=== PATIENT | male | born 1950 | race Caucasian/White ===

== ENCOUNTER → 2016-11-13 | Day surgery (SDC) | payer OTHER, MEDICARE ==
[2016-11-08 14:01] VITALS: BMI 29.1
[2016-11-13 10:24] VITALS: TEMP 98.6
[2016-11-13 10:41] VITALS: BP 124/77; PULSE 70
--- NOTE | 2016-11-14 12:04 | PATH ---
Surgical Pathology Report Patient Name: JAMES SHIPMAN [facility]. Rec. #: [id number] /Age/Gender: 1950 (Age: 66) / M Account: [id number] Location: [facility]-ENDOSCOPY Taken: 11/13/2016 Received: 11/13/2016 Reported: 11/14/2016 Physicians: Huy Ch M.D. Specimen(s) Received PROXIMAL LEFT COLON POLYP Clinical History Screening, rule out colon cancer Diverticulosis, polyp Final Diagnosis COLON, PROXIMAL LEFT, POLYP, POLYPECTOMY: TUBULAR ADENOMA. Electronically Signed Laci Forte M.D. Gross Description Received in formalin, labeled "proximal left colon polyp" is a peng, irregular portion of soft tissue measuring 0.2 cm in greatest dimension. The specimen is submitted in toto in one cassette. 11/13/201611/13/2016
== END | disposition home or self-care (01) ==
LOC: FASU-ENDO 07:58
PROVIDERS: ATTEND Internal Medicine Gastroenterology
PROC: 0DBM8ZX Excision of Descending Colon, Via Natural or Artificial Opening Endoscopic, Diagnostic (ICD-10-PCS; principal; 2016-11-13 08:47)
DX: Z12.11 Encounter for screening for malignant neoplasm of colon (principal); K57.30 Diverticulosis of large intestine without perforation or abscess without bleeding; D12.4 Benign neoplasm of descending colon
CPT/HCPCS: 88305-TC

== ENCOUNTER 2018-08-10 17:56 | Emergency (ER) | payer OTHER, MEDICARE ==
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
[2018-08-10 18:56] VITALS: BP 153/90; PULSE 88; TEMP 99.1; BMI 28.1
[2018-08-10 19:24] LABS: BASO % 0.7 % (0-2.0); EOS % 2.8 % (0-4.5); HEMATOCRIT 45.1 % (35.4-49); HEMOGLOBIN 15.4 GM/dl (11.7-16.9); LYMPH % 18.1 % (8-40); MCH 31.6 pg (25.7-33.7); MCHC 34.2 g/dl (32.0-35.9); MEAN CELL VOLUME 92.6 fl (80-96); MEAN PLT VOLUME 9.1 fl (7.5-11.1); MONO % 6.4 % (3.8-10.2); PLATELET COUNT 236 K/MM3 (134-434); RBC 4.87 M/mm3 (4.00-5.60); WHITE BLOOD COUNT 9.1 K/mm3 (4.0-10.8)
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
[2018-08-10 19:32] LABS: ALBUMIN 4.4 g/dl (3.5-5.0); ALK PHOS 92 U/L (32-92); ANION GAP 9 MMOL/L (8-16); BILIRUBIN,TOTAL 0.4 mg/dl (0.2-1.0); BLOOD UREA NITROGEN 23 mg/dl (7-18); CALCIUM 9.2 mg/dl (8.4-10.2); CHLORIDE 102 mmol/L (98-107); CO2 26 mmol/L (22-28); CREATININE 0.8 mg/dl (0.6-1.3); GLUCOSE,RANDOM 107 mg/dl (74-106); POTASSIUM 3.7 mmol/L (3.5-5.1); SGOT/AST 39 U/L (10-42); SGPT/ALT 42 U/L (10-40); SODIUM 137 mmol/L (136-145); TOT PROT 7.1 g/dl (6.4-8.3)
--- NOTE | 2018-08-11 12:57 | EKG ---
Test Reason : Blood Pressure : / mmHG Vent. Rate : 065 BPM Atrial Rate : 065 BPM P-R Int : 160 ms QRS Dur : 080 ms QT Int : 390 ms P-R-T Axes : 037 -09 035 degrees QTc Int : 405 ms NORMAL SINUS RHYTHM MINIMAL VOLTAGE CRITERIA FOR LVH, MAY BE NORMAL VARIANT INFERIOR INFARCT , AGE UNDETERMINED ABNORMAL ECG NO PREVIOUS ECGS AVAILABLE Confirmed by MD MATEUSZ, CHELSY ([id number]) on 08/11/2018 12:57:26 PM Referred By: SABAS Confirmed By:CHELSY CHILD MD
== END 2018-08-10 21:10 | disposition home or self-care (01) ==
LOC: FER 17:56
DX: R07.89 Other chest pain (principal); V43.52XA Car driver injured in collision with other type car in traffic accident, initial encounter; Y93.89 Activity, other specified; Y92.410 Unspecified street and highway as the place of occurrence of the external cause; Z87.820 Personal history of traumatic brain injury; F20.9 Schizophrenia, unspecified; I10 Essential (primary) hypertension; E78.00 Pure hypercholesterolemia, unspecified; R56.9 Unspecified convulsions; H91.8X9 Other specified hearing loss, unspecified ear
CPT/HCPCS: 36415; 70450-TC; 71250-TC; 80053; 82550; 82553; 84484; 85025; 93005; 99283-25

== ENCOUNTER 2019-01-29 15:52 | Emergency (ER) | payer OTHER, MEDICARE ==
[2019-01-29 15:56] VITALS: BP 149/85; PULSE 84; TEMP 98.8; BMI 25.8
[2019-01-29] MEDS ORDERED: ACETAMINOPHEN 325 MG TABLET (FP) PO ONE (16:21)
[2019-01-29] MEDS ORDERED: ACETAMINOPHEN 325 MG TABLET (FP) ONE (16:43)
--- NOTE | 2019-01-29 18:09 | PDOC ---
History of Present Illness - General Chief Complaint: Injury Stated Complaint: FALL Time Seen by Provider: 01/29/19 16:07 History Source: Patient, Old Records Exam Limitations: No Limitations - History of Present Illness Initial Comments: 01/29/19 18:05 68-year-old male with past medical history of congenital deafness, traumatic brain injury, hyperlipidemia, asthma, schizophrenia, seizures, hernia, left knee surgery presents with mechanical fall. The patient tripped and fell on his face. Sustained some abrasions to his bilateral knees and bilateral hands reports only pain along the left lateral maxillary region. No loss of conscious. No headache. No neck pain. Patient is ambulatory here in the emergency department. The patient does take baby aspirin. Past History - Past Medical History Allergies/Adverse Reactions: Allergies Allergy/AdvReac Type Severity Reaction Status Date / Time erythromycin base AdvReac Severe Myositis Verified 01/29/19 15:53 [From Staticin] ethyl alcohol [From Staticin] AdvReac Severe Myositis Verified 01/29/19 15:53 Vyzgifp-Jqv-Mkr Reductase AdvReac Severe Myositis Verified 01/29/19 15:53 Inhibitor Home Medications: Ambulatory Orders Aspirin [ASA -] 81 mg PO DAILY 04/18/16 Anemia: No Asthma: Yes (35 yrs ago) Cancer: No Cardiac Disorders: No CVA: No COPD: No CHF: No Dementia: No Diabetes: No GI Disorders: No Disorders: No HTN: Yes Hypercholesterolemia: Yes Liver Disease: No Seizures: Yes (50 yrs ago) Thyroid Disease: No - Surgical History Abdominal Surgery: Yes (HERNIA) Appendectomy: No Cardiac Surgery: No Cholecystectomy: No Lung Surgery: No Neurologic Surgery: No Orthopedic Surgery: Yes (ORIF Left Knee) - Immunization History Immunization Up to Date: No - Suicide/Smoking/Psychosocial Hx Smoking Status: No Smoking History: Never smoked Have you smoked in the past 12 months: No Number of Cigarettes Smoked Daily: 0 Hx Alcohol Use: No Drug/Substance Use Hx: No Substance Use Type: None Hx Substance Use Treatment: No Review of Systems - Review of Systems Able to Perform ROS?: Yes Comments:: 01/29/19 18:05 GENERAL/CONSTITUTIONAL: [No fever or chills. No weakness. No weight change.] HEAD, EYES, EARS, NOSE AND THROAT: [No change in vision. No ear pain or discharge. No sore throat.] CARDIOVASCULAR: [No chest pain or shortness of breath.] RESPIRATORY: [No cough, wheezing, or hemoptysis.] GASTROINTESTINAL: [No nausea, vomiting, diarrhea or constipation. No rectal bleeding.] GENITOURINARY: [No dysuria, frequency, or change in urination.] MUSCULOSKELETAL: [No joint or muscle swelling or pain. No neck or back pain.] SKIN AND BREASTS: Abrasions to left maxillary region, bilateral hands and bilateral knees. NEUROLOGIC: [No headache, vertigo, loss of consciousness, or loss of sensation.] PSYCHIATRIC: [No depression or anxiety.] ENDOCRINE: [No increased thirst. No abnormal weight change.] HEMATOLOGIC/LYMPHATIC: [No anemia, easy bleeding, or history of blood clots.] ALLERGIC/IMMUNOLOGIC: [No hives or skin allergy. No latex allergy.] *Physical Exam - Vital Signs Last Vital Signs Temp Pulse Resp BP Pulse Ox 98.8 F 84 16 149/85 100 01/29/19 15:53 01/29/19 15:53 01/29/19 15:53 01/29/19 15:53 01/29/19 15:53 - Physical Exam Comments: 01/29/19 18:07 GENERAL: Awake, alert, and fully oriented, in no acute distress HEAD: Small abrasion to left cheek. No loose teeth. No jaw tenderness. No falcon sign, no raccoon eyes. EYES: PERRLA, EOMI, sclera anicteric, conjunctiva clear ENT: Auricles normal inspection, hearing grossly normal, nares patent, Moist mucosa NECK: Normal ROM, supple. No c-spine tenderness. LUNGS: Breath sounds equal, clear to auscultation bilaterally. No wheezes, and no crackles HEART: Regular rate and rhythm, normal S1 and S2, no murmurs, rubs or gallops ABDOMEN: Soft, nontender, No guarding, no rebound. No masses EXTREMITIES: Normal range of motion, no edema. No clubbing or cyanosis. No cords, erythema, or tenderness FROM all extremities. Small abrasions to bilateral anterior knees. No knee instability. No joint tenderness to palpation. Small abrasion to bilateral hand but no tenderness to hand or wrist. NEUROLOGICAL: Cranial nerves II through XII grossly intact. Normal speech, normal gait SKIN: Warm, Dry, normal turgor, no rashes or lesions noted. ED Treatment Course - RADIOLOGY Radiology Studies Ordered: Category Date Time Status FACIAL BONES CT W/O CONTRAST [CT] Stat CT Scan 01/29/19 16:[address] WITHOUT CONTRAST [CT] Stat CT Scan 01/29/19 16:20 Completed - Medications Given in the ED: ED Medications Discontinued Medications Generic Name Dose Route Start Last Admin Trade Name Lin PRN Reason Stop Dose Admin Acetaminophen 975 mg 01/29/19 16:21 01/29/19 16:45 Tylenol - PO 01/29/19 16:22 975 mg ONCE ONE Administration Medical Decision Making - Medical Decision Making 01/29/19 18:09 Vital Signs Temp Pulse Resp BP Pulse Ox 98.8 F 84 16 149/85 100 01/29/19 15:53 01/29/19 15:53 01/29/19 15:53 01/29/19 15:53 01/29/19 15:53 Will defer on bilateral knee xrays. Pt has no tenderness and is ambulatory. Head CT showed no acute findings. Facial CTs showed minimally depressed fracture in the lateral wall of the left maxillary antrum, inferiorly. Given these findings, no displacement and no orbital fracture, we will have patient follow up as an outpatient with an ENT. Pt's sister, Rebecca, is here and is picking up patient. *DC/Admit/Observation/Transfer Diagnosis at time of Disposition: Maxillary fracture Qualifiers: Encounter type: initial encounter Fracture type: closed Laterality: left Qualified Code(s): S02.40DA - Maxillary fracture, left side, initial encounter for closed fracture Fall Qualifiers: Encounter type: initial encounter Qualified Code(s): W19.XXXA - Unspecified fall, initial encounter - Discharge Dispostion Disposition: HOME Condition at time of disposition: Stable Decision to Admit order: No - Referrals Referrals: Se Babb MD [Primary Care Provider] - Walter Monterroso MD [Staff Physician] - - Patient Instructions Printed Discharge Instructions: DI for Closed Head Injury, Skull and Facial Fracture Additional Instructions: You have a minimally displaced left maxillary antrum fracture. At this time, you may rest but do not apply pressure, blow your nose too hard, or press on the spot. You should follow up with an ENT surgeon. Call to schedule an appointment. Please give a copy of the results to the doctor. - Post Discharge Activity
== END 2019-01-29 18:22 | disposition home or self-care (01) ==
LOC: FER 15:52
DX: S02.40DA Maxillary fracture, left side, initial encounter for closed fracture (principal); W18.39XA Other fall on same level, initial encounter; Y93.89 Activity, other specified; Y92.89 Other specified places as the place of occurrence of the external cause; J45.909 Unspecified asthma, uncomplicated; I10 Essential (primary) hypertension; E78.00 Pure hypercholesterolemia, unspecified; Z87.820 Personal history of traumatic brain injury; H90.5 Unspecified sensorineural hearing loss; F20.9 Schizophrenia, unspecified
CPT/HCPCS: 70450-TC; 70486-TC; 99282-25

== ENCOUNTER 2019-07-02 14:50 | Emergency (ER) | payer OTHER, MEDICARE ==
[2019-07-02 15:00] VITALS: BP 157/94; PULSE 78; TEMP 98.1; BMI 25.4
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
--- NOTE | 2019-07-02 15:28 | PDOC ---
History of Present Illness - General Chief Complaint: Injury Stated Complaint: RT CLAVICLE, RT SHOULDER PAIN Time Seen by Provider: 07/02/19 14:56 History Source: Patient, Sibling - History of Present Illness Initial Comments: 07/02/19 17:06 69 w/o man with hx HTN, unspecified ?seizure disorder with memory lapses ( followed by neurology) presenting with evolving bruise formation on R chest wall with R arm pain. Due to his neurological disorder he has frequent lapses of memory, and does not recall any trauma or injury. He is accompanied today by his sister, who lives in his same building and checks in on him daily. She reports that he first noticed the bruise yesterday, alongside mild tenderness over his R clavicle. Overnight he reports difficulty sleeping secondary to the pain, and this morning found that movement of his R arm was limited by severe pain with active motion. He reports that he is still capable of moving his arm, and that the only limitation to motion is pain. He denies any headaches, fevers , chills, palpitations, weakness, shortness of breath, fatigue, difficulty breathing, dizziness, abdominal pain, dysuria, increased urinary frequency. He denies any pain in his head or neck, and denies any changes in vision. Past History - Past Medical History Allergies/Adverse Reactions: Allergies Allergy/AdvReac Type Severity Reaction Status Date / Time erythromycin base AdvReac Severe Myositis Verified 07/02/19 14:54 [From Staticin] ethyl alcohol [From Staticin] AdvReac Severe Myositis Verified 07/02/19 14:54 Xilwrqo-Ytf-Haw Reductase AdvReac Severe Myositis Verified 07/02/19 14:54 Inhibitor Home Medications: Ambulatory Orders Aspirin [ASA -] 81 mg PO DAILY 04/18/16 Lamotrigine 100 mg PO DAILY 07/02/19 Anemia: No Asthma: Yes (35 yrs ago) Cancer: No Cardiac Disorders: No CVA: No COPD: No CHF: No Dementia: No Diabetes: No GI Disorders: No Disorders: No HTN: Yes Hypercholesterolemia: Yes Liver Disease: No Seizures: Yes (50 yrs ago) Thyroid Disease: No - Surgical History Abdominal Surgery: Yes (HERNIA) Appendectomy: No Cardiac Surgery: No Cholecystectomy: No Lung Surgery: No Neurologic Surgery: No Orthopedic Surgery: Yes (ORIF Left Knee) - Immunization History Immunization Up to Date: No - Suicide/Smoking/Psychosocial Hx Smoking Status: No Smoking History: Never smoked Have you smoked in the past 12 months: No Number of Cigarettes Smoked Daily: 0 Information on smoking cessation initiated: No Hx Alcohol Use: No Drug/Substance Use Hx: No Substance Use Type: None Hx Substance Use Treatment: No Review of Systems - Review of Systems Able to Perform ROS?: Yes Comments:: 07/02/19 17:48 ROS: GENERAL/CONSTITUTIONAL: No fever or chills. No weakness. HEAD, EYES, EARS, NOSE AND THROAT: No change in vision. No ear pain or discharge. No sore throat. CARDIOVASCULAR: No chest pain or shortness of breath RESPIRATORY: No cough, wheezing, or hemoptysis. GASTROINTESTINAL: No nausea, vomiting, diarrhea or constipation. GENITOURINARY: No dysuria, frequency, or change in urination. MUSCULOSKELETAL: Chest wall bruising, pain. No joint or muscle swelling or pain. No neck or back pain. SKIN: No rash NEUROLOGIC: No headache, vertigo, loss of consciousness, or change in strength/ sensation. ENDOCRINE: No increased thirst. No abnormal weight change HEMATOLOGIC/LYMPHATIC: No anemia, easy bleeding, or history of blood clots. ALLERGIC/IMMUNOLOGIC: No hives or skin allergy. *Physical Exam - Vital Signs Last Vital Signs Temp Pulse Resp BP Pulse Ox 98.1 F 78 18 157/94 98 07/02/19 14:50 07/02/19 14:50 07/02/19 14:50 07/02/19 14:50 07/02/19 14:50 - Physical Exam Comments: 07/02/19 17:49 PE: GENERAL: Awake, alert, and fully oriented, in no acute distress HEAD: No signs of trauma, normocephalic, atraumatic EYES: PERRLA, EOMI, sclera anicteric, conjunctiva clear ENT: Auricles normal inspection, hearing grossly normal, nares patent, oropharynx clear without exudates. Moist mucosa NECK: Normal ROM, supple, no lymphadenopathy, JVD, or masses LUNGS: No distress, speaks full sentences, clear to auscultation bilaterally HEART: Regular rate and rhythm, normal S1 and S2, no murmurs, rubs or gallops, peripheral pulses normal and equal bilaterally. CHEST: Ecchymosis noted over R chest wall, 5cm fluctuant mass over R medial clavicle. Tenderness to palpation. ABDOMEN: Soft, nontender, normoactive bowel sounds. No guarding, no rebound. No masses EXTREMITIES : Peripheral pulses 2+, equal bilaterally. RUE movement limited by pain. 5/5 locomotive mechanic strength bilaterally, sensation equal throughout bilateral upper extremities. Normal inspection, Normal range of motion, no edema. No clubbing or cyanosis NEUROLOGICAL: Cranial nerves II through XII grossly intact. Normal speech, normal gait, no focal sensorimotor deficits SKIN: Warm, Dry, normal turgor, no rashes or lesions noted ED Treatment Course - LABORATORY CBC & Chemistry Diagram: 07/02/19 15:45 07/02/19 16:24 Medical Decision Making - Medical Decision Making 07/02/19 17:14 69 M with hx unspecified memory lapses p/w pain, hematoma over R clavicle with echymosis over R chest wall and RUE motion limited by pain, most consistent with clavicle fracture. Shoulder dislocation unlikely given lack of pain with passive motion. Given poor history due to memory lapses, other causes of syncope besides mechanical fall cannot be ruled out. Plan: CBC CMP Xray Chest Xray R clavicle EKG Dispo: Likely home with ortho follow up --- CBC, CMP wnl --- Clavicle X ray appears notable for R clavicle fracture, pending radiology read. --- Radiology read XR as negative. Dr. Degroot reviewed images, discussed with Radiology. Clavicle fracture possible, but X ray views not ideal. Plan for discharge home with orthopedics follow up, arm sling for immobilization. *DC/Admit/Observation/Transfer Diagnosis at time of Disposition: Clavicle fracture Qualifiers: Encounter type: initial encounter Clavicle location: sternal end Fracture type : closed Fracture alignment: nondisplaced Laterality: unspecified laterality Qualified Code(s): S42.019A - Nondisplaced fracture of sternal end of unspecified clavicle, initial encounter for closed fracture - Discharge Dispostion Disposition: HOME Condition at time of disposition: Stable Decision to Admit order: No - Referrals Referrals: Se Babb MD [Primary Care Provider] - Aly Roldan DO [Staff Physician] - Sergio Burr MD [Staff Physician] - - Patient Instructions Printed Discharge Instructions: How to Use a Sling, DI for Clavicle Fracture- Adult Additional Instructions: You were seen in the Emergency Department for a growing bruise on your chest with arm pain. We found that you have a clavicle fracture. Please follow up with your primary care provider, and orthopedics as soon as possible, in the next 7 days. Please wear the sling as much as possible, keeping the shoulder immobilized will help with healing. Please take acetaminophen over the counter for pain control. Please return to the Emergency Department if you develop numbness, tingling, severe pain in your hand, or if you lose sensation in that arm. - Post Discharge Activity
[2019-07-02] MEDS ORDERED: ACETAMINOPHEN 325 MG TABLET (FP) PO ONE (15:42)
[2019-07-02 15:57] LABS: MEAN CELL VOLUME 93.6 fl (80-96)
[2019-07-02 16:02] LABS: BASO % 0.9 % (0-2.0); EOS % 1.9 % (0-4.5); HEMATOCRIT 41.8 % (35.4-49); HEMOGLOBIN 14.4 GM/dl (11.7-16.9); LYMPH % 16.9 % (8-40); MCH 32.2 pg (25.7-33.7); MCHC 34.4 g/dl (32.0-35.9); MEAN PLT VOLUME 8.7 fl (7.5-11.1); MONO % 8.6 % (3.8-10.2); NEUT % 71.7 % (42.8-82.8); PLATELET COUNT 207 K/MM3 (134-434); RBC 4.47 M/mm3 (4.00-5.60); RDW 11.8 % (11.9-15.9); WHITE BLOOD COUNT 7.7 K/mm3 (4.0-10.8)
[2019-07-02] MEDS ORDERED: ACETAMINOPHEN 325 MG TABLET (FP) ONE (16:11)
[2019-07-02 16:17] LABS: ALBUMIN 4.3 g/dl (3.4-5.0); BILIRUBIN,TOTAL 0.7 mg/dl (0.2-1); CALCIUM 9.5 mg/dl (8.5-10); POTASSIUM 3.9 mmol/L (3.5-5.1); TOT PROT 6.9 g/dl (6.4-8.2)
--- NOTE | 2019-07-03 15:15 | EKG ---
Test Reason : Blood Pressure : / mmHG Vent. 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
== END 2019-07-02 17:35 | disposition home or self-care (01) ==
LOC: SUPCPDRO 14:50 → FER 14:50
DX: S42.019A Nondisplaced fracture of sternal end of unspecified clavicle, initial encounter for closed fracture (principal); I10 Essential (primary) hypertension; R41.3 Other amnesia; J45.909 Unspecified asthma, uncomplicated; E78.00 Pure hypercholesterolemia, unspecified; X58.XXXA Exposure to other specified factors, initial encounter; Y93.89 Activity, other specified; Y92.89 Other specified places as the place of occurrence of the external cause
CPT/HCPCS: 36415; 71046-TC-FY; 73000-TC-RT-FY; 80053; 85025; 93005; 99284-25

== ENCOUNTER 2019-07-26 04:54 | Emergency (ER) | payer OTHER, MEDICARE ==
[2019-07-26 05:02] VITALS: TEMP 99.2; BMI 29.6
--- NOTE | 2019-07-26 05:33 | PDOC ---
History of Present Illness - General Chief Complaint: CVA/TIA Stated Complaint: TINGLING TO R SIDE BODY Time Seen by Provider: 07/26/19 05:23 History Source: Patient, Sibling Exam Limitations: No Limitations - History of Present Illness Initial Comments: 07/26/19 05:46 woke up with r sided tingling/ pins and needles, Timing/Duration: reports: 1-3 hours, constant, decreasing Severity: Yes: moderate Episode Description: was intense when he awoke, now less so. r sided, predominantly r arm but al Associated Symptoms: reports: denies symptoms Past History - Past Medical History Allergies/Adverse Reactions: Allergies Allergy/AdvReac Type Severity Reaction Status Date / Time erythromycin base AdvReac Severe Myositis Verified 07/02/19 14:54 [From Staticin] ethyl alcohol [From Staticin] AdvReac Severe Myositis Verified 07/02/19 14:54 Ezsbyqh-Uol-Bau Reductase AdvReac Severe Myositis Verified 07/02/19 14:54 Inhibitor Home Medications: Ambulatory Orders Aspirin [ASA -] 81 mg PO DAILY 04/18/16 Lamotrigine 100 mg PO DAILY 07/02/19 Anemia: No Asthma: Yes (35 yrs ago) Cancer: No Cardiac Disorders: No CVA: No COPD: No CHF: No Dementia: No Diabetes: No GI Disorders: No Disorders: No HTN: Yes Hypercholesterolemia: Yes Liver Disease: No Seizures: Yes (50 yrs ago) Thyroid Disease: No - Surgical History Abdominal Surgery: Yes (HERNIA) Appendectomy: No Cardiac Surgery: No Cholecystectomy: No Lung Surgery: No Neurologic Surgery: No Orthopedic Surgery: Yes (ORIF Left Knee) - Immunization History Immunization Up to Date: No - Psycho Social/Smoking Cessation Hx Smoking Status: No Smoking History: Unknown if ever smoked Have you smoked in the past 12 months: No Number of Cigarettes Smoked Daily: 0 Information on smoking cessation initiated: No Hx Alcohol Use: No Drug/Substance Use Hx: No Substance Use Type: None Hx Substance Use Treatment: No Review of Systems - Review of Systems All Other Systems: Reviewed and Negative *Physical Exam - Vital Signs Last Vital Signs Temp Pulse Resp BP Pulse Ox 99.2 F 75 14 184/91 H 99 07/26/19 04:59 07/26/19 05:19 07/26/19 04:59 07/26/19 04:59 07/26/19 05:19 - Physical Exam General Appearance: Yes: Nourished, Appropriately Dressed HEENT: positive: EOMI Neck: negative: Tender midline Respiratory/Chest: positive: Lungs Clear Cardiovascular: positive: Regular Rhythm Gastrointestinal/Abdominal: positive: Normal Bowel Sounds. negative: Tender Lymphatic: negative: Adenopathy Musculoskeletal: positive: Other (tender r clavicle) Extremity: positive: Normal Capillary Refill Integumentary: positive: Normal Color Neurologic: positive: ict sales representative II-XII NML intact, Fully Oriented, Alert, Motor Strength 5/5, Other (dysarthric but at baseline per sister). negative: Abnormal Cranial NS, Facial Droop, Sensory Deficit, Confused, Disoriented Heart Score/ECG Review - ECG Intrepretation Comment:: 07/26/19 05:25 Sinus at 67, nl axis, nl intervals, Qs in 3 &F Critical Care Time/MDM Note - Medical Decision Making Note: 07/26/19 06:50 unable to appreciate new focal deficit, other than dysarthria, which is not new (per sister) ? medication reaction--on higher doses of AED ? secondary to injured clavicle will check labs, CXR, head CT Discharge - Discharge Information Problems reviewed: Yes Clinical Impression/Diagnosis: Prerenal azotemia Condition: Good - Follow up/Referral Referrals: Se Babb MD [Primary Care Provider] - - Patient Discharge Instructions - Post Discharge Activity
[2019-07-26 06:03] LABS: BASO % 1.2 % (0-2.0); EOS % 4.3 % (0-4.5); HEMATOCRIT 40.2 % (35.4-49); LYMPH % 30.2 % (8-40); MCHC 34.9 g/dl (32.0-35.9); MEAN CELL VOLUME 91.4 fl (80-96); MEAN PLT VOLUME 9.2 fl (7.5-11.1); MONO % 7.9 % (3.8-10.2); NEUT % 56.4 % (42.8-82.8); PLATELET COUNT 242 K/MM3 (134-434); RDW 12.8 % (11.9-15.9)
[2019-07-26 06:44] LABS: ALBUMIN 3.9 g/dl (3.4-5.0); BILIRUBIN,TOTAL 0.6 mg/dL (0.2-1); BLOOD UREA NITROGEN 27.6 mg/dL (7-18); CREATININE 0.8 mg/dL (0.55-1.3); MAGNESIUM 2.5 mg/dL (1.8-2.4); TOT PROT 6.7 g/dl (6.4-8.2)
[2019-07-26] MEDS ORDERED: SODIUM CHLORIDE 0.9% 500 ML INFUS.BAG IV ONE (06:49)
--- NOTE | 2019-07-26 07:12 | PDOC ---
*Physical Exam - Vital Signs Last Vital Signs Temp Pulse Resp BP Pulse Ox 99.2 F 75 14 184/91 H 99 07/26/19 04:59 07/26/19 05:38 07/26/19 04:59 07/26/19 04:59 07/26/19 05:38 ED Treatment Course - LABORATORY CBC & Chemistry Diagram: 07/26/19 05:15 07/26/19 05:15 - ADDITIONAL ORDERS Additional order review: Laboratory Results 07/26/19 07/26/19 05:15 05:00 Sodium 141 Potassium 4.0 Chloride 105 Carbon Dioxide 28 Anion Gap 7 L BUN 27.6 H Creatinine 0.8 Est GFR (CKD-EPI)AfAm 104.17 Est GFR (CKD-EPI)NonAf 89.88 Random Glucose 88 Calcium 9.0 Magnesium 2.5 H Total Bilirubin 0.6 AST 37 ALT 41 Alkaline Phosphatase 139 H Troponin I < 0.02 Total Protein 6.7 Albumin 3.9 07/26/19 05:15 RBC 4.40 MCV 91.4 MCHC 34.9 RDW 12.8 MPV 9.2 Neutrophils % 56.4 Lymphocytes % 30.2 Monocytes % 7.9 Eosinophils % 4.3 Basophils % 1.2 - Medications Given in the ED: ED Medications Discontinued Medications Generic Name Dose Route Start Last Admin Trade Name Freq PRN Reason Stop Dose Admin Sodium Chloride 1,000 ml 07/26/19 06:49 07/26/19 07:02 Normal Saline - IV 07/26/19 06:50 1,000 ml ONCE ONE Administration Medical Decision Making - Medical Decision Making 07/26/19 07:11 pt signed out from overnight attg pending imaging and reeval in summary 69 YOM with h/o seizures presenting with paresthesias from right to left side. no new focal deficit, other than dysarthria, which is not new (per sister) ? medication reaction--on higher doses of AED getting IVF for prerenal azotemia, very mild. preserved Cr neuro intact here labs unremarkable. CT head neg for ICH/CVA, mass, no acute pathology cxr clear, no acute chest pathology. VS notable for mild hypertension 07/26/19 07:14 - on cliinical recheck, now with more headache. no focal neuro deficits. paresthesias have improved on discussion with sister and pt at bedside, has been increased gradually on lamotrigine, neurologist Dr Rockwell could be side effect profile. told to followup with medication adjustments will given analgesia for headache - VS rechecked, downtrending, normalizing Pt to be discharged in stable condition. Patient and family made aware of clinical impression, treatment recommendations and disposition plan, return precautions discussed (including but not limited to new or persistent/worsening symptoms, pain, fevers, or signs of infection, chest pain, respiratory distress , inability to tolerate oral intake, dehydration, syncope, or neurologic changes ). Follow up with PMD and/or neuro specialist as recommended, follow up information provided, take medications as instructed for duration of time. continue with supportive care, avoid triggers and precipitants. All questions answered to patient's satisfaction and expressed understanding and comfort with this. At the time of discharge, the patient is alert, clinically improved, tolerating po and verbalizes understanding of instructions, satisfied with the care received and felt comfortable with the plan. Patient does not suffer from an acute life-threatening medical condition at this time and is safe for outpatient follow-up. 07/26/19 07:20 Discharge - Discharge Information Problems reviewed: Yes Clinical Impression/Diagnosis: Prerenal azotemia, Paresthesia Condition: Good Disposition: HOME - Admission No - Follow up/Referral Referrals: Se Babb MD [Primary Care Provider] - Ricardo Rockwell MD [Staff Physician] - - Patient Discharge Instructions Patient Printed Discharge Instructions: DI for Numbness/tingling Additional Instructions: 1) Please follow-up with your primary care doctor in the next 1-2 days. Please call tomorrow for for any urgent issues. you should follow up with your neurologist regarding your seizure disorder management and medications 2) You were given a copy of the tests performed today. Please bring the results with you and review them with your primary care doctor. Your laboratory / imaging results were normal, including CT scan and chest x ray 3) If you have any worsening of symptoms or any other concerns please return to the ED immediately. Return if worsening symptoms including fevers, headache, vomiting, visual or hearing disturbances, abdominal pain, chest pain, shortness of breath, syncope, dehydration, inability to take things by mouth/vomiting, altered mental status, or worsening concerning symptoms. 4) Please continue taking your home medications as directed. Stay well hydrated and rest adequately. Make an appointment. If you cannot follow-up with your primary care doctor please return to the ED - Post Discharge Activity
[2019-07-26] MEDS ORDERED: ACETAMINOPHEN 325 MG TABLET (FP) PO ONE (07:19)
[2019-07-26 07:27] VITALS: BP 121/73; PULSE 60
[2019-07-26] MEDS ORDERED: ACETAMINOPHEN 325 MG TABLET (FP) ONE (07:27)
--- NOTE | 2019-07-26 10:29 | EKG ---
Test Reason : Blood Pressure : / mmHG Vent. 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
== END 2019-07-26 08:01 | disposition home or self-care (01) ==
LOC: FER 04:54
PROC: 3E0337Z Introduction of Electrolytic and Water Balance Substance into Peripheral Vein, Percutaneous Approach (ICD-10-PCS; principal; 2019-07-26)
DX: R79.89 Other specified abnormal findings of blood chemistry (principal); R20.2 Paresthesia of skin; Z88.8 Allergy status to other drugs, medicaments and biological substances; Z91.09 Other allergy status, other than to drugs and biological substances; J45.909 Unspecified asthma, uncomplicated; E78.00 Pure hypercholesterolemia, unspecified; R56.9 Unspecified convulsions
CPT/HCPCS: 36415; 70450-TC; 71045-TC-FY; 80053; 83735; 84484; 85025; 93005; 99285-25

== ENCOUNTER 2019-11-12 13:00 | Emergency (ER) | payer OTHER, MEDICARE ==
[2019-11-12 13:21] VITALS: PULSE 73; BMI 26.6
[2019-11-12] MEDS ORDERED: DIPHTH,PERTUSS(ACELL),TET 0.5 ML DISP.SYRIN IM ONE ×2 (13:36→14:43)
[2019-11-12] MEDS ORDERED: ACETAMINOPHEN 325 MG TABLET (FP) PO ONE (13:36)
--- NOTE | 2019-11-12 13:36 | PDOC ---
History of Present Illness - General Chief Complaint: Injury Stated Complaint: Injury Time Seen by Provider: 11/12/19 13:18 - History of Present Illness Initial Comments: Derrell Hines is a 69yo man with a PMH of seizures (on Keppra) who presents to the ED with facial injuries after a fall. The fall was witnessed by a [employer] police communications operator, who was available to confirm that Mr Hines tripped on the sidewalk and fell. Mr Hines states that he does not remember what happened. The pt's sister, at bedside in the ED, reports that the patient has a history of short term memory loss and cannot recall what happened to him at baseline. She states that she dropped him off for the senior lunch at the fire station, and he normally takes the bus home. He is usually dropped off at their house. Today, he says that he decided to walk home rather than taking the bus. Mr Hines states that he does not have any pain. He is able to move all his extremities and does not have any difficulty or pain when moving his left eye. Past History - Past Medical History Allergies/Adverse Reactions: Allergies Allergy/AdvReac Type Severity Reaction Status Date / Time erythromycin base AdvReac Severe Myositis Verified 11/12/19 13:06 [From Staticin] ethyl alcohol [From Staticin] AdvReac Severe Myositis Verified 11/12/19 13:06 Pzizwed-Nts-Fnb Reductase AdvReac Severe Myositis Verified 11/12/19 13:06 Inhibitor Home Medications: Ambulatory Orders Aspirin [ASA -] 81 mg PO DAILY 04/18/16 Lamotrigine 100 mg PO DAILY 07/02/19 Anemia: No Asthma: Yes (35 yrs ago) Cancer: No Cardiac Disorders: No CVA: No COPD: No CHF: No Dementia: No Diabetes: No GI Disorders: No Disorders: No HTN: Yes Hypercholesterolemia: Yes Liver Disease: No Seizures: Yes (50 yrs ago) Thyroid Disease: No - Surgical History Abdominal Surgery: Yes (HERNIA) Appendectomy: No Cardiac Surgery: No Cholecystectomy: No Lung Surgery: No Neurologic Surgery: No Orthopedic Surgery: Yes (ORIF Left Knee) - Immunization History Immunization Up to Date: No - Psycho Social/Smoking Cessation Hx Smoking Status: No Smoking History: Never smoked Have you smoked in the past 12 months: No Number of Cigarettes Smoked Daily: 0 Hx Alcohol Use: No Drug/Substance Use Hx: No Substance Use Type: None Hx Substance Use Treatment: No Review of Systems - Review of Systems Comments:: General: No fevers, no chills, no weight or appetite change, no malaise HEENT: No changes in vision, no changes in hearing, no congestion, no sore throat CV: No chest pain, no palpitations, no LE edema Pulm: No SOB, no cough, no wheezing GI: No nausea or vomiting, no change in bowel habits, no melena : No frequency, no urgency, no dysuria Musc: No back pain, no joint swelling. See HPI Skin: No rash, no lesions, no erythema Endo: No excessive thirst, no heat/cold intolerance Heme: No unusual bruising or bleeding, no swollen glands Neuro: No syncope, no numbness/tingling, no focal weakness Vasc: No claudication Psych: No recent change in mood, no SI or HI *Physical Exam - Vital Signs Last Vital Signs Temp Pulse Resp BP Pulse Ox 98.3 F 73 18 133/82 100 11/12/19 13:17 11/12/19 13:17 11/12/19 13:17 11/12/19 13:17 11/12/19 13:17 - Physical Exam General: Comfortable, no acute distress HEENT: 5-6cm jagged laceration w/o active bleeding over left eyebrow with underlying bruising and swelling. Left eye does not open completely secondary to swelling. Purple/black contusion over L inferior orbital rim. Superficial abrasion to left cheek. PERRL, EOMI, MMM, voice normal Cards: RRR, no murmur appreciated Pulm: Comfortable on room air, clear to auscultation bilaterally Abd: Soft, nontender, nondistended Ext: Superficial abrasion to L knee. No LE edema. ROM intact, strength intact. WWP. Skin: Normal color, no rashes or lesions Neuro: A&Ox3, CN grossly intact, normal speech, motor/sensory grossly intact and symmetric Psych: Mood appropriate to situation Procedures - Laceration/Wound Repair Left Frontal Wound Length: 2.6 to 5.0 cm Wound Explored: no foreign body present Wound's Depth, Shape: irregular (Full thickness) Irrigated w/ Saline: Yes Betadine Prep: No Anesthesia: 1% Lidocaine (5cc) Amount of Anesthetic (ccs): 5 Wound Debrided: none Wound Repaired With: Sutures Suture Size/Type: 5:0, proline Number of Sutures: 10 Layer Closure: No Sterile Dressing Applied: Yes Progress: Pt was noted to have a Z-shaped, full thickness laceration to the left forehead just superior to the eyebrow. The would was anesthetized using 5cc of sterile saline and thoroughly explored. No foreign material was appreciated. The wound was then closed using 5-0 proline. 10 Simple interrupted sutures were placed. The wound edges were well approximated, and adequate hemostasis was achieved. Mr Hines tolerated the procedure well. No complications were observed. The wound was dressed with bacitracin ointment and clean gauze. ED Treatment Course - RADIOLOGY Radiology Studies Ordered: Category Date Time Status CERVICAL SPINE CT W/O CONTR [CT] Stat CT Scan 11/12/19 13:[address] W/O CONTRAST [CT] Stat CT Scan 11/12/19 13:[address] WITHOUT CONTRAST [CT] Stat CT Scan 11/12/19 13:33 Ordered Radiograph Interpretation: EXAM#: TYPE/EXAM: RESULT: [id number] CT/HEAD CT WITHOUT CONTRAST Status post fall with head injury IMPRESSION: Moderate atrophy without gross interval change or acute intracranial pathology. Moderate soft tissue swelling of the scalp over left side of the forehead with a skin laceration Reported By: Dylan Hidalgo MD 11/12/19 1535 EXAM#: TYPE/EXAM: RESULT: [id number] CT/FACIAL BONES CT W/O CONTRAST IMPRESSION: No gross fracture is identified. Both orbits are intact. Moderate soft tissue swelling of the scalp over left side of the forehead with skin laceration again seen Reported By: Dylan Hidalgo MD 11/12/19 1535 EXAM#: TYPE/EXAM: RESULT: [id number] CT/CERVICAL SPINE CT W/O CONTR IMPRESSION: The alignment is satisfactory. No gross fracture or subluxation is seen. Reported By: Dylan Hidalgo MD 11/12/19 1535 Medical Decision Making - Medical Decision Making 11/12/19 13:36 Derrell Hines is a 69yo man with a PMH of seizures (on Keppra) who presents to the ED with facial injuries after a mechanical fall. - Witnessed mechanical fall - Pt with laceration to his forehead, marked bruising and swelling around the left eye - CT head, c-spine, facial bones - Acetaminophen, tetanus - Will need laceration repaired following scans 11/12/19 16:58 - Laceration repaired without any complications. Bacitracin applied to laceration, left cheek abrasion, left knee abrasion - Home care discussed at length with Mr Hines and his sister. Both understand and agree. Plan to return to PMD to remove sutures Seen with Dr Jasper Tilley PGY2 Discharge - Discharge Information Problems reviewed: Yes Clinical Impression/Diagnosis: Fall Qualifiers: Encounter type: initial encounter Qualified Code(s): W19.XXXA - Unspecified fall, initial encounter Forehead laceration Qualifiers: Encounter type: initial encounter Qualified Code(s): S01.81XA - Laceration without foreign body of other part of head, initial encounter Condition: Stable Disposition: HOME - Admission No - Follow up/Referral Referrals: Se Babb MD [Primary Care Provider] - - Patient Discharge Instructions Patient Printed Discharge Instructions: DI for Laceration Repair -- Simple Additional Instructions: Discharge Instructions: You were seen in the emergency department with a laceration to your forehead. The laceration was repaired with 10 stitches. Home Care: - You should avoid getting the wound wet for at least 24 hours. After 24hrs, you may wash your face and shower normally. It is OK to use a plain soap and allow water to run over the wound. Do not scrub at the wound, and pat dry after washing. Do not rub with a towel. - After 24hrs you may remove the bandage and leave the wound open to air. - Do not apply any lotions, ointments, creams or other topical medications to the wound - Some redness and swelling is expected after an injury. You may see a small amount of bleeding or pinkish drainage on the bandage when you remove it. This is normal. - You may use acetaminophen (Tylenol) or ibuprofen (Advil, Motrin) as needed for pain. Please follow the directions on the bottle for dosing information. Follow Up: - You will need to be seen in 5-7 days for suture removal. You can return to the emergency room or see your regular doctor. - Seek immediate medical care if your wound becomes significantly more painful, swollen, red, you have a large amount of thick drainage, you have fevers to 101F or higher, or you have red streaking from the wound. - Post Discharge Activity
[2019-11-12] MEDS ORDERED: ACETAMINOPHEN 325 MG TABLET (FP) ONE (13:44)
--- NOTE | 2019-11-12 14:58 | PDOC ---
Documentation entered by Lindy Suh SCRIBE, acting as scribe for Sergio Hutchinson MD. Sergio Hutchinson MD: This documentation has been prepared by the Vikash panchal Adrianna, SCRIBE, under my direction and personally reviewed by me in its entirety. I confirm that the documentation accurately reflects all work, treatment, procedures, and medical decision making performed by me. Attending Attestation - Resident Resident Name: Britta Tilley - ED Attending Attestation I have performed the following: I have examined & evaluated the patient, The case was reviewed & discussed with the resident, I agree w/resident's findings & plan, Exceptions are as noted - HPI HPI: 11/12/19 14:54 69 M with h/o seizure d/o, TBI, presenting to ED after trip and fall. Pt was [place] [employer] [place] tripping and falling forward onto his face. Pt has no recollection of the event due to baseline mental impairment. Pt' s sister is at bedside and reports he is behaving at his baseline. Pt now complains of pain in his forehead where he hit his head. Otherwise denies any pain. Denies N/V. Denies neck pain or back pain. - Physicial Exam PE: 11/12/19 14:56 "GENERAL: Awake, alert, and fully oriented, in no acute distress. HEAD: + forehead lac EYES: PERRLA, EOMI, sclera anicteric, conjunctiva clear ENT: Auricles normal inspection, hearing grossly normal, nares patent, oropharynx clear without exudates. Moist mucosa NECK: Nontender, no stepoffs, Normal ROM, supple, no lymphadenopathy, JVD, or masses LUNGS: Breath sounds equal, clear to auscultation bilaterally. No wheezes, and no crackles HEART: Regular rate and rhythm, normal S1 and S2, no murmurs, rubs or gallops ABDOMEN: Soft, nontender, normoactive bowel sounds. No guarding, no rebound. No masses EXTREMITIES: Normal range of motion, no edema. No clubbing or cyanosis. No cords, erythema, or tenderness NEUROLOGICAL: Cranial nerves II through XII intact. 5/5 strength and sensation in all extremities, Normal speech, normal gait, normal cerebellar function SKIN: Warm, Dry, normal turgor, no rashes or lesions noted. - Medical Decision Making 11/12/19 14:56 69 M with witnessed mechanical fall. Has no recollection of event but is at baseline mentation per sister. - CT head/c-spine/facial bones - Lac repair - Tdap 11/12/19 16:42 CTs unremarkable Lac repaired Pt is well appearing, with normal vitals. Clinically stable for DC at this time. I discussed the physical exam findings, ancillary test results and final diagnoses with the patient. I answered all of the patient's questions. The patient was satisfied with the care received and felt comfortable with the discharge plan and treatment plan. The patient agrees to follow up with the primary care physician within 24-72 hours.
[2019-11-12 16:48] VITALS: BP 130/65; TEMP 98.4
== END 2019-11-12 17:10 | disposition home or self-care (01) ==
LOC: JER 13:00
PROC: 0HQ1XZZ Repair Face Skin, External Approach (ICD-10-PCS; principal; 2019-11-12)
PROC: 3E0234Z Introduction of Serum, Toxoid and Vaccine into Muscle, Percutaneous Approach (ICD-10-PCS; 2019-11-12)
DX: S01.81XA Laceration without foreign body of other part of head, initial encounter (principal); W18.39XA Other fall on same level, initial encounter; Y93.89 Activity, other specified; G40.909 Epilepsy, unspecified, not intractable, without status epilepticus; Y92.410 Unspecified street and highway as the place of occurrence of the external cause; Z88.8 Allergy status to other drugs, medicaments and biological substances
CPT/HCPCS: 12011-25; 70450-TC; 70486-TC; 72125-TC; 90471; 90715; 99282-25

== ENCOUNTER 2020-06-10 20:30 | Emergency (ER) | payer OTHER, MEDICARE ==
[2020-06-10 21:00] VITALS: BP 114/70; PULSE 71; TEMP 97.6; BMI 25.0
--- NOTE | 2020-06-10 21:48 | PDOC ---
Documentation entered by Rubio De Oliveira SCRIBE, acting as scribe for Hemalatha Broderick MD. Hemalatha Broderick MD: This documentation has been prepared by the scribe, Rubio De Oliveira SCRIBE, under my direction and personally reviewed by me in its entirety. I confirm that the documentation accurately reflects all work, treatment, procedures, and medical decision making performed by me. History of Present Illness - General Chief Complaint: Injury Stated Complaint: FELL Time Seen by Provider: 06/10/20 20:34 History Source: Patient, Family Exam Limitations: No Limitations - History of Present Illness Initial Comments: 06/10/20 21:10 The patient is a 70 year old male with a significant past medical history of seizures (on Keppra), TBI, baseline mental impairment, hyperlipidemia, asthma, schizophrenia, hernia, left knee surgery and congenital deafness (hearing aides) who presents to the emergency department, [facility], for evaluation of a laceration to the back of the head s/p an unwitnessed fall tonight. Per patients daughter at bedside, she heard a crash and went into her fathers apartment to find him awake on the ground with no memory of the fall. She reports the patient had an EEG yesterday and has a follow up appointment in three days. The patient denies chest/abdominal/back pain, cough, and shortness of breath. Denies fever, chills, nausea, vomiting, and/or any GI symptoms. Denies any symptoms. Denies any other symptoms. PAST MEDICAL HISTORY: seizures (on Keppra), TBI, baseline mental impairment, hyperlipidemia, asthma, schizophrenia, hernia (abdominal and hip), and congenital deafness (hearing aides) PAST SURGICAL HISTORY: left knee surgery FAMILY HISTORY: no pertinent history SOCIAL HISTORY: Pt lives with family. MEDICATIONS: reviewed ALLERGIES: As per nursing notes PCP: Dr. Skinny STUBBS General: No fevers or chills, no weakness, no weight loss HEENT: +laceration on back of head No change in vision. No sore throat. No ear pain CardioVascular: No chest pain or shortness of breath Respiratory:No cough, or wheezing. Gastrointestinal: no nausea, vomiting, diarrhea or constipation, No rectal bleeding Genitourinary: No dysuria, hematuria, or frequency Musculoskeletal: No joint or muscle pain or swelling Neurologic: No headache, vertigo, dizziness or loss of consciousness Psychiatric: nor depression Skin: No rashes or easy bruising Endocrine: no increased thirst or abnormal weight change Allergic: no skin or latex allergy All other systems reviewed and normal Physical Exam: GENERAL: The patient is awake, alert, and fully oriented, in no acute distress. HEAD: 4cm irregular laceration in the posterior occipital area with minimal bleeding at this time EYES: Pupils equal, round and reactive to light, extraocular movements intact, sclera anicteric, conjunctiva clear. EXTREMITIES: Normal range of motion, no edema. NEUROLOGICAL: Normal speech, normal gait. PSYCH: Normal mood, normal affect. SKIN: Warm, Dry, normal turgor, no rashes or lesions noted. 06/10/20 22:50 Assessment and plan: This is a 70-year-old male with known seizure disorder who has breakthrough stage seizures on a relatively frequent basis. Patient had a breakthrough seizure this evening and fell hitting his head. Patient had a laceration approximately 4 cm long on the back of his head. Laceration was closed with total of 8 althea and patient had a CAT scan of his head and neck which was negative for any acute pathology. Patient discharged home will follow up with his primary care doctor. Procedure note laceration repair Laceration anesthetized with 1% lidocaine Laceration cleaned with normal saline and closed with a total of 8 althea Past History - Medical History Allergies/Adverse Reactions: Allergies Allergy/AdvReac Type Severity Reaction Status Date / Time erythromycin base AdvReac Severe Myositis Verified 06/10/20 22:01 [From Staticin] ethyl alcohol [From Staticin] AdvReac Severe Myositis Verified 06/10/20 22:01 Xizymza-Fnc-Gmv Reductase AdvReac Severe Myositis Verified 06/10/20 22:01 Inhibitor Home Medications: Ambulatory Orders Divalproex *ER* [Depakote *ER* -] 500 mg PO BID 06/10/20 Levetiracetam 1,000 mg PO BID 06/10/20 Anemia: No Asthma: Yes (35 yrs ago) Cancer: No Cardiac Disorders: No CVA: No COPD: No CHF: No Dementia: No Diabetes: No GI Disorders: No Disorders: No HTN: Yes Hypercholesterolemia: Yes Liver Disease: No Seizures: Yes (50 yrs ago) Thyroid Disease: No - Surgical History Abdominal Surgery: Yes (HERNIA) Appendectomy: No Cardiac Surgery: No Cholecystectomy: No Lung Surgery: No Neurologic Surgery: No Orthopedic Surgery: Yes (ORIF Left Knee) - Immunization History Immunization Up to Date: No - Psycho-Social/Smoking History Smoking Status: No Smoking History: Never smoked Have you smoked in the past 12 months: No Number of Cigarettes Smoked Daily: 0 Discharge - Discharge Information Problems reviewed: Yes Clinical Impression/Diagnosis: Breakthrough seizure Occipital scalp laceration Qualifiers: Encounter type: initial encounter Qualified Code(s): S01.01XA - Laceration without foreign body of scalp, initial encounter Condition: Good Disposition: HOME - Follow up/Referral Referrals: Se Babb MD [Primary Care Provider] - - Patient Discharge Instructions Patient Printed Discharge Instructions: DI for Laceration Repair Additional Instructions: For the pain take Tylenol 1000 mg as often this 3-4 times a day if needed. Someone to check on you once tonight during the night. You should be arousable to their normal level of arousability for that time of the night. If you have been vomiting, had a seizure, or you are unable to be aroused or there is a change in your mental status call 911 go back to the nearest em ergency department. Take Tylenol as needed for pain. Staple removal in 8 to 10 days Return to the emergency department immediately with ANY new, persistent or worsening symptoms. Continue any medications as previously prescribed by your physician. You should follow up with your primary doctor as soon as possible regarding today's emergency department visit. . Please make sure your doctor reviews the results of your emergency evaluation. Thank you for coming to the Emergency Department today for your care. It was a pleasure to see you today. Please note that your evaluation is INCOMPLETE until you follow-up with your doctor. - Post Discharge Activity
== END 2020-06-10 23:20 | disposition home or self-care (01) ==
LOC: SUPCPDRO 20:30 → FER 20:30
DX: S01.01XA Laceration without foreign body of scalp, initial encounter (principal)
CPT/HCPCS: 36415; 70450-TC; 72125-TC; 80177; 99284-25

== ENCOUNTER 2020-06-19 13:29 | Emergency (ER) | payer OTHER, MEDICARE ==
--- NOTE | 2020-06-19 13:38 | PDOC ---
Suture Removal/Wound Check HPI - History of Present Illness Chief Complaint: Suture/Staple Removal(Here) Stated Complaint: STAPLE REMOVAL HEAD Time Seen by Provider: 06/19/20 13:37 History Source: Yes: Patient Exam Limitations: Yes: No Limitations Treated at: [facility] ED Date of Last ED visit: 06/10/20 - Previous ED Treatment Type of procedure performed on last visit: Yes: Laceration Repair Tetanus Immunization: Yes: Given at last ED visit - Onset of Previous Treatment Date of Occurence: 06/10/20 Comment:: 06/19/20 13:41 70y M presenting for staple removal. pt was seen on 06/10 for fall/head njury with head laceration repaired and was told to come today for staple removal. pt has no complaints, deneis any headache, fever/chills, vision changes, neck pain, pain to th esite. on exam: healing wound on posterior scalp well approximated, no dehicense no erythema/induration/fluctuance/warmth 7 althea removed without difficulty will dc with supprotive care Past History - Medical History Allergies/Adverse Reactions: Allergies Allergy/AdvReac Type Severity Reaction Status Date / Time erythromycin base AdvReac Severe Myositis Verified 06/19/20 13:31 [From Staticin] ethyl alcohol [From Staticin] AdvReac Severe Myositis Verified 06/19/20 13:31 Zqrcjid-Xpr-Lcq Reductase AdvReac Severe Myositis Verified 06/19/20 13:31 Inhibitor Home Medications: Ambulatory Orders Divalproex *ER* [Depakote *ER* -] 500 mg PO BID 06/10/20 Levetiracetam 1,000 mg PO BID 06/10/20 Anemia: No Asthma: Yes (35 yrs ago) Cancer: No Cardiac Disorders: No CVA: No COPD: No CHF: No Dementia: No Diabetes: No GI Disorders: No Disorders: No HTN: Yes Hypercholesterolemia: Yes Liver Disease: No Seizures: Yes (50 yrs ago) Thyroid Disease: No - Surgical History Abdominal Surgery: Yes (HERNIA) Appendectomy: No Cardiac Surgery: No Cholecystectomy: No Lung Surgery: No Neurologic Surgery: No Orthopedic Surgery: Yes (ORIF Left Knee) - Immunization History Td Vaccination: Yes (2011) Immunization Up to Date: No - Psycho-Social/Smoking History Smoking Status: No Smoking History: Never smoked Have you smoked in the past 12 months: No Number of Cigarettes Smoked Daily: 0 Discharge - Discharge Information Problems reviewed: Yes Clinical Impression/Diagnosis: Removal of staple Occipital scalp laceration Qualifiers: Encounter type: subsequent encounter Qualified Code(s): S01.01XD - Laceration without foreign body of scalp, subsequent encounter Condition: Improved Disposition: HOME - Admission No - Follow up/Referral Referrals: Se Babb MD [Primary Care Provider] - - Patient Discharge Instructions Patient Printed Discharge Instructions: DI for Suture Removal Additional Instructions: Continue to wash the area gently with soap and water if there is any increased pain/discomfort, redness, discharge return ro the ER for evaluation. Print Language: [place] - Post Discharge Activity
[2020-06-19 14:09] VITALS: BP 126/73; PULSE 64; TEMP 98.3; BMI 25.0
== END 2020-06-19 13:45 | disposition home or self-care (01) ==
LOC: FER 13:29
DX: Z48.02 Encounter for removal of sutures (principal)
CPT/HCPCS: 99281-25

== ENCOUNTER 2020-12-08 11:41 | Inpatient (IN) | payer OTHER, MEDICARE ==
[2020-12-08] MEDS ORDERED: ASPIRIN 81 MG CHEWABLE TABLETS PO ONE (12:00)
[2020-12-08] MEDS ORDERED: ASPIRIN 81 MG CHEWABLE TABLETS ONE (12:25)
[2020-12-08 12:45] LABS: BASO % 0.6 % (0-2.0); EOS % 1.1 % (0-4.5); HEMATOCRIT 44.5 % (35.4-49); HEMOGLOBIN 14.9 GM/dl (11.7-16.9); LYMPH % 28.8 % (8-40); MCH 32.2 pg (25.7-33.7); MCHC 33.6 g/dl (32.0-35.9); MEAN CELL VOLUME 95.8 fl (80-96); MEAN PLT VOLUME 9.7 fl (7.5-11.1); NEUT % 60.5 % (42.8-82.8); PLATELET COUNT 116 K/MM3 (134-434); RBC 4.64 M/mm3 (4.00-5.60); RDW 12.9 % (11.9-15.9); WHITE BLOOD COUNT 4.7 K/mm3 (4.0-10.8)
[2020-12-08 12:48] LABS: ALBUMIN 3.9 g/dl (3.4-5.0); BILIRUBIN,TOTAL 0.9 mg/dl (0.2-1); CALCIUM 9.1 mg/dl (8.5-10); POTASSIUM 3.9 mmol/L (3.5-5.1); TOT PROT 6.2 g/dl (6.4-8.2)
[2020-12-08 12:49] LABS: ACTIVATED PTT 29.4 SECONDS (25.2-36.5)
[2020-12-08 12:54] LABS: INR 1.08 (0.82-1.09)
[2020-12-08] MEDS ORDERED: DEXAMETHASONE SOD PHOSPHATE 4 MG/1 ML VIAL IVPUSH ONE (13:34)
[2020-12-08] MEDS ORDERED: DEXAMETHASONE SOD PHOSPHATE 10 MG/1 ML VIAL ONE (13:40)
[2020-12-08 14:06] LABS: LDH 204 U/L (84-246)
[2020-12-08] MEDS ORDERED: ENOXAPARIN NA (PORCINE) 60 MG/0.6 ML DISP.SYRIN SQ ONE (14:53)
[2020-12-08] MEDS: ENOXAPARIN NA (PORCINE) 40 MG/0.4 ML DISP.SYRIN SQ SCH (14:55)
[2020-12-08] MEDS ORDERED: DOXYCYCLINE HYCLATE 100 MG CAPSULE PO ONE ×3 (16:27→16:33)
[2020-12-08] MEDS ORDERED: DIVALPROEX NA *ER* EXTEND REL 500 MG TABLET.SA (FP) PO SCH (22:00)
[2020-12-08] MEDS: levETIRAcetam 500 MG TABLET (FP) PO SCH (22:21)
[2020-12-09 06:47] VITALS: PULSE 52; TEMP 97.9
[2020-12-09 08:10] LABS: BASO % 0.4 % (0-2.0); EOS % 0.1 % (0-4.5); HEMATOCRIT 41.2 % (35.4-49); HEMOGLOBIN 13.6 GM/dl (11.7-16.9); LYMPH % 15.3 % (8-40); MCH 31.8 pg (25.7-33.7); MCHC 32.9 g/dl (32.0-35.9); MEAN CELL VOLUME 96.5 fl (80-96); MEAN PLT VOLUME 10.3 fl (7.5-11.1); NEUT % 76.2 % (42.8-82.8); PLATELET COUNT 108 K/MM3 (134-434); RBC 4.27 M/mm3 (4.00-5.60); RDW 12.5 % (11.9-15.9); WHITE BLOOD COUNT 6.6 K/mm3 (4.0-10.8)
[2020-12-09 08:19] LABS: ALBUMIN 3.5 g/dl (3.4-5.0); BILIRUBIN,TOTAL 0.8 mg/dl (0.2-1); CALCIUM 9.3 mg/dl (8.5-10); CREATININE 0.9 mg/dl (0.55-1.3); MAGNESIUM 2.2 mg/dL (1.8-2.4); POTASSIUM 4.6 mmol/L (3.5-5.1); TOT PROT 5.8 g/dl (6.4-8.2)
[2020-12-09] MEDS: levETIRAcetam 500 MG TABLET (FP) PO SCH (09:19)
[2020-12-09] MEDS: ENOXAPARIN NA (PORCINE) 40 MG/0.4 ML DISP.SYRIN SQ SCH (09:19)
[2020-12-09] MEDS ORDERED: amLODIPine BESYLATE 10 MG TABLET (FP) PO SCH (10:00)
[2020-12-09 11:07] LABS: N-TERMINAL BNP 114.8 pg/ml (5-125)
[2020-12-09 12:06] VITALS: BP 125/71
[2020-12-11 11:34] VITALS: BMI 26.6
== END 2020-12-09 14:30 | disposition home or self-care (01) | DRG 313 ==
LOC: FER 11:41 → FM/S 14:35
PROVIDERS: ADMIT Internal Medicine; ATTEND Nurse Practitioner Family
DX: R07.89 Other chest pain (principal); I10 Essential (primary) hypertension; G40.909 Epilepsy, unspecified, not intractable, without status epilepticus; H90.3 Sensorineural hearing loss, bilateral; J45.909 Unspecified asthma, uncomplicated; F20.9 Schizophrenia, unspecified; F32.9 Major depressive disorder, single episode, unspecified; R29.6 Repeated falls; Z87.820 Personal history of traumatic brain injury
CPT/HCPCS: 36415; 71045-TC-FY; 80053; 82550; 82553; 82728; 83036; 83615; 83735; 83880; 84443; 84484; 85025; 85379; 85610; 85651; 85730; 86140; 93005; 99285-25; C9803; U0003

== ENCOUNTER 2021-08-09 14:20 | Emergency (ER) | payer OTHER, MEDICARE ==
[2021-08-09] MEDS ORDERED: diphenhydrAMINE HCL 50 MG CAPSULE PO ONE (14:41)
[2021-08-09 14:47] VITALS: TEMP 97.8; BMI 25.8
[2021-08-09] MEDS ORDERED: diphenhydrAMINE HCL 50 MG CAPSULE ONE (14:55)
[2021-08-09 16:52] VITALS: BP 143/68; PULSE 79
== END 2021-08-09 16:54 | disposition home or self-care (01) ==
LOC: FER 14:20
DX: T63.444A Toxic effect of venom of bees, undetermined, initial encounter (principal)
CPT/HCPCS: 99283-25

== ENCOUNTER 2021-10-18 20:45 | Emergency (ER) | payer OTHER, MEDICARE ==
[2021-10-18 20:51] VITALS: BP 135/77; PULSE 87; TEMP 98.1; BMI 25.8
[2021-10-18] MEDS ORDERED: DIPHTH,PERTUSS(ACELL),TET 0.5 ML DISP.SYRIN IM ONE ×2 (21:19→21:23)
== END 2021-10-18 21:30 | disposition home or self-care (01) ==
LOC: FER 20:45
PROC: 3E0234Z Introduction of Serum, Toxoid and Vaccine into Muscle, Percutaneous Approach (ICD-10-PCS; principal; 2021-10-18)
DX: S61.203A Unspecified open wound of left middle finger without damage to nail, initial encounter (principal)
CPT/HCPCS: 90471; 90715; 99283-25

== ENCOUNTER 2022-02-20 06:03 | Inpatient (IN) | payer OTHER, MEDICARE ==
[2022-02-20 07:09] LABS: HEMATOCRIT 40.9 % (35.4-49); HEMOGLOBIN 14.4 G/dL (11.7-16.9); MCH 33.9 pg (25.7-33.7); MCHC 35.1 g/dl (32.0-35.9); MEAN CELL VOLUME 96.6 fl (80-96); MEAN PLT VOLUME 8.7 fl (7.5-11.1); RBC 4.23 10^6/uL (4.00-5.60); RDW 13.7 % (11.9-15.9); WHITE BLOOD COUNT 3.5 10^3/uL (4.0-10.8)
[2022-02-20 07:15] LABS: ALBUMIN 3.4 g/dl (3.4-5.0); BILIRUBIN,TOTAL 0.9 mg/dl (0.2-1); CALCIUM 8.9 mg/dl (8.5-10); TOT PROT 5.6 g/dl (6.4-8.2)
[2022-02-20] MEDS: amLODIPine BESYLATE 10 MG TABLET (FP) PO SCH (10:29)
[2022-02-20] MEDS: levETIRAcetam 500 MG TABLET (FP) PO SCH ×2 (10:29→21:51)
[2022-02-20] MEDS: DIVALPROEX NA *ER* EXTEND REL 500 MG TABLET.SA (FP) PO SCH ×2 (10:29→21:51)
[2022-02-20] MEDS ORDERED: ENOXAPARIN NA (PORCINE) 60 MG/0.6 ML DISP.SYRIN SQ ONE (10:32)
[2022-02-20] MEDS: ENOXAPARIN NA (PORCINE) 40 MG/0.4 ML DISP.SYRIN SQ SCH ×2 (10:37→12:57)
[2022-02-20] MEDS: ACETAMINOPHEN 1000 MG/100 ML BAG IVPB PRN (16:03)
[2022-02-20] MEDS: TAMSULOSIN HCL 0.4 MG CAP PO SCH (16:07)
[2022-02-21] MEDS: DEXAMETHASONE SOD PHOSPHATE 4 MG/1 ML VIAL IVPUSH SCH (08:56)
[2022-02-21] MEDS: TAMSULOSIN HCL 0.4 MG CAP PO SCH (08:57)
[2022-02-21] MEDS: ENOXAPARIN NA (PORCINE) 40 MG/0.4 ML DISP.SYRIN SQ SCH (09:00)
[2022-02-21] MEDS: amLODIPine BESYLATE 10 MG TABLET (FP) PO SCH (09:00)
[2022-02-21] MEDS: levETIRAcetam 500 MG TABLET (FP) PO SCH ×2 (09:00→21:26)
[2022-02-21] MEDS: DIVALPROEX NA *ER* EXTEND REL 500 MG TABLET.SA (FP) PO SCH (10:34)
[2022-02-21] MEDS: ACETAMINOPHEN 1000 MG/100 ML BAG IVPB PRN (10:39)
[2022-02-21 10:52] LABS: BASO % 0.6 % (0-2.0); HEMATOCRIT 38.7 % (35.4-49); HEMOGLOBIN 13.5 GM/dL (11.7-16.9); LYMPH % 12.9 % (8-40); MCH 33.2 pg (25.7-33.7); MCHC 34.9 g/dl (32.0-35.9); MEAN CELL VOLUME 95.2 fl (80-96); MEAN PLT VOLUME 8.8 fl (7.5-11.1); MONO % 8.1 % (3.8-10.2); NEUT % 78.4 % (42.8-82.8); PLATELET COUNT 68 10^3/uL (134-434); RBC 4.07 M/mm3 (4.00-5.60); RDW 13.3 % (11.9-15.9); WHITE BLOOD COUNT 4.8 K/mm3 (4.0-10.0)
[2022-02-21] MEDS ORDERED: DIVALPROEX NA *ER* EXTEND REL 500 MG TABLET.SA (FP) PO SCH ×2 (11:37→22:00)
[2022-02-21] MEDS ORDERED: DIVALPROEX NA *ER* EXTEND REL 500 MG TABLET.SA (FP) PO ONE (11:37)
[2022-02-21] MEDS ORDERED: REMDESIVIR 200 MG in SODIUM CHLORIDE 250 ML IVPB ONE (12:00)
[2022-02-21] MEDS: BUDESONIDE/FORMETEROL FUMARATE 160/4.5 mcg INHALER IH SCH ×2 (12:31→21:27)
[2022-02-21] MEDS: ZINC SULFATE 220 MG CAPSULE (FP) PO SCH (15:05)
[2022-02-21] MEDS: ASCORBIC ACID 250 MG TABLET (FP) PO SCH (15:05)
[2022-02-21] MEDS: CHOLECALCIFEROL (VIT D3) 1,000 UNIT (25 MCG) TABLET PO SCH (15:05)
[2022-02-21 15:52] LABS: ALBUMIN 2.7 g/dl (3.4-5.0); BILIRUBIN,TOTAL 0.5 mg/dL (0.2-1); BLOOD UREA NITROGEN 20.6 mg/dL (7-18); CALCIUM 8.4 mg/dL (8.5-10.1); CREATININE 0.9 mg/dL (0.55-1.3); MAGNESIUM 2.1 mg/dL (1.8-2.4); TOT PROT 5.2 g/dl (6.4-8.2)
[2022-02-21 16:20] VITALS: BMI 24.1
[2022-02-21] MEDS: DIVALPROEX SODIUM 500 MG TABLET E.C. PO SCH (21:27)
[2022-02-22] MEDS: TAMSULOSIN HCL 0.4 MG CAP PO SCH (10:51)
[2022-02-22] MEDS: DEXAMETHASONE SOD PHOSPHATE 4 MG/1 ML VIAL IVPUSH SCH (10:51)
[2022-02-22] MEDS: DIVALPROEX SODIUM 500 MG TABLET E.C. PO SCH ×2 (10:52→21:53)
[2022-02-22] MEDS: amLODIPine BESYLATE 10 MG TABLET (FP) PO SCH (10:52)
[2022-02-22] MEDS: levETIRAcetam 500 MG TABLET (FP) PO SCH ×2 (10:52→21:53)
[2022-02-22] MEDS: ZINC SULFATE 220 MG CAPSULE (FP) PO SCH (10:53)
[2022-02-22] MEDS: ASCORBIC ACID 250 MG TABLET (FP) PO SCH (10:53)
[2022-02-22] MEDS: CHOLECALCIFEROL (VIT D3) 1,000 UNIT (25 MCG) TABLET PO SCH (10:54)
[2022-02-22 10:55] LABS: BASO % 0.4 % (0-2.0); HEMATOCRIT 40.4 % (35.4-49); HEMOGLOBIN 13.9 GM/dL (11.7-16.9); LYMPH % 20.2 % (8-40); MCH 32.9 pg (25.7-33.7); MCHC 34.4 g/dl (32.0-35.9); MEAN CELL VOLUME 95.7 fl (80-96); MEAN PLT VOLUME 8.9 fl (7.5-11.1); MONO % 7.8 % (3.8-10.2); NEUT % 71.6 % (42.8-82.8); PLATELET COUNT 68 10^3/uL (134-434); RBC 4.22 M/mm3 (4.00-5.60); RDW 13.7 % (11.9-15.9); WHITE BLOOD COUNT 7.4 K/mm3 (4.0-10.0)
[2022-02-22] MEDS: BUDESONIDE/FORMETEROL FUMARATE 160/4.5 mcg INHALER IH SCH ×2 (10:57→21:53)
[2022-02-22 11:19] LABS: ALBUMIN 2.6 g/dl (3.4-5.0); CALCIUM 8.7 mg/dL (8.5-10.1)
[2022-02-22 11:20] LABS: BLOOD UREA NITROGEN 30.9 mg/dL (7-18)
[2022-02-22 11:21] LABS: MAGNESIUM 2.3 mg/dL (1.8-2.4)
[2022-02-22 11:22] LABS: PHOSPHOROUS 3.3 mg/dL (2.5-4.9)
[2022-02-22 11:24] LABS: BILIRUBIN,TOTAL 0.6 mg/dL (0.2-1); TOT PROT 5.2 g/dl (6.4-8.2)
[2022-02-22] MEDS: REMDESIVIR 100 MG in SODIUM CHLORIDE 250 ML IVPB SCH (12:56)
[2022-02-23] MEDS: levETIRAcetam 500 MG TABLET (FP) PO SCH ×2 (09:37→21:30)
[2022-02-23] MEDS: DIVALPROEX SODIUM 500 MG TABLET E.C. PO SCH ×2 (09:37→21:29)
[2022-02-23] MEDS: amLODIPine BESYLATE 10 MG TABLET (FP) PO SCH (09:38)
[2022-02-23] MEDS: TAMSULOSIN HCL 0.4 MG CAP PO SCH (09:38)
[2022-02-23] MEDS: DOCUSATE SODIUM 100 MG CAPSULE (FP) PO SCH (09:38)
[2022-02-23] MEDS: DEXAMETHASONE SOD PHOSPHATE 4 MG/1 ML VIAL IVPUSH SCH (09:38)
[2022-02-23 09:40] LABS: BASO % 0.2 % (0-2.0); HEMATOCRIT 42.9 % (35.4-49); HEMOGLOBIN 14.5 GM/dL (11.7-16.9); LYMPH % 15.4 % (8-40); MCH 32.6 pg (25.7-33.7); MCHC 33.8 g/dl (32.0-35.9); MEAN CELL VOLUME 96.4 fl (80-96); MEAN PLT VOLUME 9.7 fl (7.5-11.1); MONO % 6.3 % (3.8-10.2); NEUT % 78.1 % (42.8-82.8); PLATELET COUNT 84 10^3/uL (134-434); RBC 4.45 M/mm3 (4.00-5.60); RDW 13.4 % (11.9-15.9); WHITE BLOOD COUNT 8.7 K/mm3 (4.0-10.0)
[2022-02-23] MEDS: BUDESONIDE/FORMETEROL FUMARATE 160/4.5 mcg INHALER IH SCH ×2 (09:50→21:30)
[2022-02-23 10:11] LABS: ALBUMIN 2.7 g/dl (3.4-5.0); BLOOD UREA NITROGEN 33.2 mg/dL (7-18); CALCIUM 9.1 mg/dL (8.5-10.1)
[2022-02-23 10:12] LABS: MAGNESIUM 2.4 mg/dL (1.8-2.4)
[2022-02-23 10:15] LABS: PHOSPHOROUS 3.2 mg/dL (2.5-4.9)
[2022-02-23 10:16] LABS: BILIRUBIN,TOTAL 0.5 mg/dL (0.2-1); TOT PROT 5.5 g/dl (6.4-8.2)
[2022-02-23] MEDS: REMDESIVIR 100 MG in SODIUM CHLORIDE 250 ML IVPB SCH (12:42)
[2022-02-24 09:46] LABS: HEMATOCRIT 41.2 % (35.4-49); HEMOGLOBIN 14.2 GM/dL (11.7-16.9); LYMPH % 14.2 % (8-40); MCH 33.3 pg (25.7-33.7); MCHC 34.4 g/dl (32.0-35.9); MEAN CELL VOLUME 96.7 fl (80-96); MEAN PLT VOLUME 9.2 fl (7.5-11.1); MONO % 7.5 % (3.8-10.2); NEUT % 78.3 % (42.8-82.8); PLATELET COUNT 84 10^3/uL (134-434); RBC 4.26 M/mm3 (4.00-5.60); RDW 13.2 % (11.9-15.9); WHITE BLOOD COUNT 8.6 K/mm3 (4.0-10.0)
[2022-02-24] MEDS: amLODIPine BESYLATE 10 MG TABLET (FP) PO SCH (10:05)
[2022-02-24] MEDS: DEXAMETHASONE SOD PHOSPHATE 4 MG/1 ML VIAL IVPUSH SCH (10:08)
[2022-02-24] MEDS: DIVALPROEX SODIUM 500 MG TABLET E.C. PO SCH ×2 (10:08→21:48)
[2022-02-24] MEDS: levETIRAcetam 500 MG TABLET (FP) PO SCH ×2 (10:08→21:48)
[2022-02-24] MEDS: DOCUSATE SODIUM 100 MG CAPSULE (FP) PO SCH (10:09)
[2022-02-24] MEDS: BUDESONIDE/FORMETEROL FUMARATE 160/4.5 mcg INHALER IH SCH ×2 (10:09→21:48)
[2022-02-24] MEDS: TAMSULOSIN HCL 0.4 MG CAP PO SCH (10:09)
[2022-02-24 10:33] LABS: ALBUMIN 2.6 g/dl (3.4-5.0); TOT PROT 5.3 g/dl (6.4-8.2)
[2022-02-24 10:34] LABS: BLOOD UREA NITROGEN 37.7 mg/dL (7-18); CALCIUM 8.9 mg/dL (8.5-10.1)
[2022-02-24 10:35] LABS: MAGNESIUM 2.3 mg/dL (1.8-2.4)
[2022-02-24 10:36] LABS: CREATININE 0.9 mg/dL (0.55-1.3); PHOSPHOROUS 3.7 mg/dL (2.5-4.9)
[2022-02-24 10:38] LABS: BILIRUBIN,TOTAL 0.4 mg/dL (0.2-1)
[2022-02-24] MEDS: REMDESIVIR 100 MG in SODIUM CHLORIDE 250 ML IVPB SCH (12:06)
[2022-02-25 08:25] LABS: BASO % 0.1 % (0-2.0); HEMOGLOBIN 13.1 GM/dL (11.7-16.9); LYMPH % 17.7 % (8-40); MCH 32.9 pg (25.7-33.7); MCHC 34.4 g/dl (32.0-35.9); MEAN CELL VOLUME 95.8 fl (80-96); MEAN PLT VOLUME 9.9 fl (7.5-11.1); MONO % 7.5 % (3.8-10.2); NEUT % 74.7 % (42.8-82.8); PLATELET COUNT 93 10^3/uL (134-434); RBC 3.96 M/mm3 (4.00-5.60); WHITE BLOOD COUNT 7.2 K/mm3 (4.0-10.0)
[2022-02-25 08:51] LABS: CALCIUM 8.5 mg/dL (8.5-10.1)
[2022-02-25 08:52] LABS: BLOOD UREA NITROGEN 35.1 mg/dL (7-18)
[2022-02-25 08:55] LABS: CREATININE 0.8 mg/dL (0.55-1.3)
[2022-02-25] MEDS: TAMSULOSIN HCL 0.4 MG CAP PO SCH (09:45)
[2022-02-25] MEDS: DOCUSATE SODIUM 100 MG CAPSULE (FP) PO SCH (10:02)
[2022-02-25] MEDS: DIVALPROEX SODIUM 500 MG TABLET E.C. PO SCH ×2 (10:02→21:32)
[2022-02-25] MEDS: levETIRAcetam 500 MG TABLET (FP) PO SCH ×2 (10:03→21:32)
[2022-02-25] MEDS: DEXAMETHASONE SOD PHOSPHATE 4 MG/1 ML VIAL IVPUSH SCH (10:03)
[2022-02-25] MEDS: BUDESONIDE/FORMETEROL FUMARATE 160/4.5 mcg INHALER IH SCH ×2 (10:04→21:33)
[2022-02-25] MEDS: REMDESIVIR 100 MG in SODIUM CHLORIDE 250 ML IVPB SCH (11:40)
[2022-02-26 08:10] LABS: HEMATOCRIT 36.9 % (35.4-49); HEMOGLOBIN 12.8 GM/dL (11.7-16.9); MCH 33.1 pg (25.7-33.7); MCHC 34.7 g/dl (32.0-35.9); MEAN CELL VOLUME 95.4 fl (80-96); MEAN PLT VOLUME 9.7 fl (7.5-11.1); PLATELET COUNT 100 10^3/uL (134-434); RBC 3.86 M/mm3 (4.00-5.60); RDW 12.6 % (11.9-15.9); WHITE BLOOD COUNT 6.4 K/mm3 (4.0-10.0)
[2022-02-26 08:38] LABS: CALCIUM 8.6 mg/dL (8.5-10.1)
[2022-02-26 08:39] LABS: ALBUMIN 2.1 g/dl (3.4-5.0); BLOOD UREA NITROGEN 37.6 mg/dL (7-18)
[2022-02-26 08:42] LABS: CREATININE 0.8 mg/dL (0.55-1.3)
[2022-02-26 08:43] LABS: BILIRUBIN,TOTAL 0.4 mg/dL (0.2-1); TOT PROT 4.4 g/dl (6.4-8.2)
[2022-02-26] MEDS: TAMSULOSIN HCL 0.4 MG CAP PO SCH (08:57)
[2022-02-26] MEDS: DIVALPROEX SODIUM 500 MG TABLET E.C. PO SCH (09:38)
[2022-02-26] MEDS: amLODIPine BESYLATE 10 MG TABLET (FP) PO SCH (09:38)
[2022-02-26] MEDS: DOCUSATE SODIUM 100 MG CAPSULE (FP) PO SCH (09:38)
[2022-02-26] MEDS: levETIRAcetam 500 MG TABLET (FP) PO SCH (09:38)
[2022-02-26] MEDS: DEXAMETHASONE SOD PHOSPHATE 4 MG/1 ML VIAL IVPUSH SCH (09:39)
[2022-02-26] MEDS: BUDESONIDE/FORMETEROL FUMARATE 160/4.5 mcg INHALER IH SCH (09:41)
[2022-02-26 10:00] LABS: ANISOCYTOSIS 0; HELMET CELLS 0; HOWELL-JOLLY BODIES 0; MACROCYTOSIS 0; OVALOCYTE 0; ROULEAU 0; SICKELED CELLS 0; TARGET CELLS 0; TEAR DROP CELLS 0; TOXIC GRANULATION 0
[2022-02-26 10:21] VITALS: BP 108/63; PULSE 50; TEMP 97.9
[2022-02-27 00:15] LABS: SARS-CoV-2 NAA Detected (Not Detected)
== END 2022-02-26 12:10 | DRG 177 ==
LOC: FER 06:03 → JERBED 12:44 → J5S 12:45
PROVIDERS: ADMIT Internal Medicine; ATTEND Internal Medicine
PROC: XW033E5 Introduction of Remdesivir Anti-infective into Peripheral Vein, Percutaneous Approach, New Technology Group 5 (ICD-10-PCS; principal; 2022-02-21)
PROC: 3E0333Z Introduction of Anti-inflammatory into Peripheral Vein, Percutaneous Approach (ICD-10-PCS; 2022-02-21)
DX: U07.1 COVID-19 (principal); J12.82 Pneumonia due to coronavirus disease 2019; J96.01 Acute respiratory failure with hypoxia; G40.909 Epilepsy, unspecified, not intractable, without status epilepticus; I10 Essential (primary) hypertension; F20.9 Schizophrenia, unspecified; E78.5 Hyperlipidemia, unspecified; R29.6 Repeated falls; R05.9 Cough, unspecified; F32.A Depression, unspecified; H90.3 Sensorineural hearing loss, bilateral
CPT/HCPCS: 36415; 70450-TC; 71045-TC-FY; 72125-TC; 73070-TC-RT-FY; 73090-TC-LT-FY; 73130-TC-LT-FY; 80048; 80053; 81003; 81015; 82550; 82553; 83605; 83735; 84100; 84484; 85025; 86140; 87086; 93005; 93010; 94761; 97116-GP; 97162-GP; C9399; C9803-CS; U0003; U0005

== ENCOUNTER 2022-03-21 18:03 | Observation (INO) | payer OTHER, MEDICARE ==
[2022-03-21] MEDS ORDERED: ACETAMINOPHEN 500 MG TABLET (FP) PO ONE (19:33)
[2022-03-21] MEDS ORDERED: ACETAMINOPHEN 325 MG TABLET (FP) ONE (19:53)
[2022-03-21 20:30] LABS: BASO % 0.5 % (0-2.0); EOS % 1.4 % (0-4.5); HEMATOCRIT 38.5 % (35.4-49); LYMPH % 33.9 % (8-40); MCH 32.8 pg (25.7-33.7); MCHC 33.9 g/dl (32.0-35.9); MEAN PLT VOLUME 8.7 fl (7.5-11.1); MONO % 13.8 % (3.8-10.2); NEUT % 50.4 % (42.8-82.8); PLATELET COUNT 130 10^3/uL (134-434); RBC 3.97 M/mm3 (4.00-5.60); RDW 13.6 % (11.9-15.9); WHITE BLOOD COUNT 4.9 K/mm3 (4.0-10.0)
[2022-03-21 20:50] LABS: CALCIUM 8.7 mg/dL (8.5-10.1)
[2022-03-21 20:51] LABS: ALBUMIN 2.9 g/dl (3.4-5.0); BLOOD UREA NITROGEN 25.3 mg/dL (7-18)
[2022-03-21 20:54] LABS: CREATININE 0.9 mg/dL (0.55-1.3)
[2022-03-21 20:55] LABS: BILIRUBIN,TOTAL 0.2 mg/dL (0.2-1); TOT PROT 5.8 g/dl (6.4-8.2)
[2022-03-21] MEDS ORDERED: DIVALPROEX NA *ER* EXTEND REL 500 MG TABLET.SA (FP) PO ONE (21:33)
[2022-03-21] MEDS ORDERED: levETIRAcetam 500 MG TABLET (FP) PO ONE ×2 (21:33→21:38)
[2022-03-21] MEDS ORDERED: DIVALPROEX SODIUM 500 MG TABLET E.C. ONE (21:38)
[2022-03-21 22:56] LABS: URINE APPEARANCE CLEAR; URINE BILIRUBIN NEGATIVE (NEGATIVE); URINE COLOR YELLOW; URINE GLUCOSE (UA) NEGATIVE (NEGATIVE); URINE KETONE TRACE (NEGATIVE); URINE LEUK ESTERASE NEGATIVE (NEGATIVE); URINE NITRITE NEGATIVE (NEGATIVE); URINE PROTEIN NEGATIVE (NEGATIVE)
[2022-03-22 07:52] LABS: BASO % 1.2 % (0-2.0); EOS % 2.4 % (0-4.5); HEMATOCRIT 38.7 % (35.4-49); HEMOGLOBIN 13.3 GM/dL (11.7-16.9); LYMPH % 30.5 % (8-40); MCH 33.5 pg (25.7-33.7); MCHC 34.4 g/dl (32.0-35.9); MEAN CELL VOLUME 97.4 fl (80-96); MEAN PLT VOLUME 8.3 fl (7.5-11.1); MONO % 15.4 % (3.8-10.2); NEUT % 50.5 % (42.8-82.8); PLATELET COUNT 118 10^3/uL (134-434); RBC 3.98 M/mm3 (4.00-5.60); RDW 13.6 % (11.9-15.9); WHITE BLOOD COUNT 4.2 K/mm3 (4.0-10.0)
[2022-03-22 08:21] LABS: CALCIUM 8.6 mg/dL (8.5-10.1)
[2022-03-22 08:22] LABS: BLOOD UREA NITROGEN 20.4 mg/dL (7-18)
[2022-03-22 08:25] LABS: CREATININE 1.1 mg/dL (0.55-1.3)
[2022-03-22 10:59] VITALS: BMI 24.0
[2022-03-22] MEDS: DIVALPROEX SODIUM 500 MG TABLET E.C. PO SCH ×2 (12:16→21:24)
[2022-03-22] MEDS: levETIRAcetam 500 MG TABLET (FP) PO SCH ×2 (12:17→21:24)
[2022-03-23 06:46] LABS: INR 1.07 (0.83-1.09); PROTHROMBIN TIME (PATIENT) 12.3 SEC (9.7-13.0)
[2022-03-23 06:49] LABS: ACTIVATED PTT 32.8 SECONDS (25.2-36.5)
[2022-03-23] MEDS: amLODIPine BESYLATE 10 MG TABLET (FP) PO SCH (09:38)
[2022-03-23] MEDS: levETIRAcetam 500 MG TABLET (FP) PO SCH ×2 (09:38→21:31)
[2022-03-23] MEDS: DIVALPROEX SODIUM 500 MG TABLET E.C. PO SCH ×2 (09:38→21:31)
[2022-03-23] MEDS: ASPIRIN 81 MG CHEWABLE TABLETS PO SCH (09:42)
[2022-03-23] MEDS ORDERED: ASPIRIN 325 MG TABLET PO SCH (10:00)
[2022-03-24] MEDS: ASPIRIN 81 MG CHEWABLE TABLETS PO SCH (09:20)
[2022-03-24] MEDS: levETIRAcetam 500 MG TABLET (FP) PO SCH ×2 (09:20→21:05)
[2022-03-24] MEDS: amLODIPine BESYLATE 10 MG TABLET (FP) PO SCH (09:20)
[2022-03-24] MEDS: DIVALPROEX SODIUM 500 MG TABLET E.C. PO SCH ×2 (09:21→21:05)
[2022-03-25] MEDS: amLODIPine BESYLATE 10 MG TABLET (FP) PO SCH (09:15)
[2022-03-25] MEDS: ASPIRIN 81 MG CHEWABLE TABLETS PO SCH (09:15)
[2022-03-25] MEDS: DIVALPROEX SODIUM 500 MG TABLET E.C. PO SCH (09:15)
[2022-03-25] MEDS: levETIRAcetam 500 MG TABLET (FP) PO SCH (09:15)
[2022-03-25 14:38] VITALS: BP 117/65; PULSE 63; TEMP 97.8
== END 2022-03-25 18:32 ==
LOC: JER 18:03 → JERBED 22:41 → J4S 03-22 08:43
PROVIDERS: ADMIT Internal Medicine; ATTEND Family Medicine
PROC: 0HQ1XZZ Repair Face Skin, External Approach (ICD-10-PCS; principal; 2022-03-21)
DX: Z04.3 Encounter for examination and observation following other accident (principal); S01.81XA Laceration without foreign body of other part of head, initial encounter; G40.909 Epilepsy, unspecified, not intractable, without status epilepticus; R29.6 Repeated falls; Z87.898 Personal history of other specified conditions; Z88.0 Allergy status to penicillin; D69.6 Thrombocytopenia, unspecified; F20.9 Schizophrenia, unspecified; J45.909 Unspecified asthma, uncomplicated; E78.5 Hyperlipidemia, unspecified; S06.890A Other specified intracranial injury without loss of consciousness, initial encounter; I10 Essential (primary) hypertension; H90.5 Unspecified sensorineural hearing loss; Z87.738 Personal history of other specified (corrected) congenital malformations of digestive system; W18.39XA Other fall on same level, initial encounter; Y93.89 Activity, other specified; Y92.099 Unspecified place in other non-institutional residence as the place of occurrence of the external cause
CPT/HCPCS: 0241U-QW; 12013; 36415; 70450-TC; 70486-TC; 71045-TC-FY; 72125-TC; 80048; 80053; 80164; 80177; 81003; 82607; 82962; 83605; 83735; 84484; 85025; 85610; 85730; 87086; 93005; 93010; 93880-TC; 97116-GP; 97162-GP; 99285-25; G0378

== ENCOUNTER 2022-05-17 21:41 | Emergency (ER) | payer OTHER, MEDICARE ==
[2022-05-17 21:54] VITALS: BP 133/85; PULSE 68; RESP 17; TEMP 99.4; BMI 25.1
[2022-05-17] MEDS ORDERED: LIDOCAINE HCL 2% (20ML MULTI-DOSE VIAL) ONE (22:01)
[2022-05-17] MEDS ORDERED: CEPHALEXIN MONOHYDRATE 500 MG CAPSULE (UD) PO ONE (22:18)
[2022-05-17] MEDS ORDERED: CEPHALEXIN MONOHYDRATE 500 MG CAPSULE (UD) ONE (22:26)
== END 2022-05-17 23:18 | disposition home or self-care (01) ==
LOC: FER 21:41
DX: S51.812A Laceration without foreign body of left forearm, initial encounter (principal); S20.419A Abrasion of unspecified back wall of thorax, initial encounter; W01.0XXA Fall on same level from slipping, tripping and stumbling without subsequent striking against object, initial encounter
CPT/HCPCS: 70450-TC; 99284-25

== ENCOUNTER 2022-05-26 19:00 | Emergency (ER) | payer OTHER, MEDICARE ==
[2022-05-26 19:27] VITALS: BP 110/75; PULSE 75; RESP 16; TEMP 99.7; BMI 25.1
== END 2022-05-26 20:17 | disposition home or self-care (01) ==
LOC: FER 19:00
DX: Z48.02 Encounter for removal of sutures (principal)
CPT/HCPCS: 99281-25

== ENCOUNTER 2022-06-01 12:58 | Emergency (ER) | payer OTHER, MEDICARE ==
[2022-06-01 13:11] VITALS: BP 144/62; PULSE 82; RESP 20; TEMP 98.2; BMI 27.3
== END 2022-06-01 14:05 | disposition home or self-care (01) ==
LOC: FER 12:58
DX: Z48.02 Encounter for removal of sutures (principal)
CPT/HCPCS: 99281-25

== ENCOUNTER 2023-08-07 13:01 | Emergency (ER) | payer OTHER, MEDICARE ==
[2023-08-07 13:42] VITALS: BP 105/66; PULSE 80; RESP 18; TEMP 98.7; BMI 22.9
== END 2023-08-07 13:47 | disposition home or self-care (01) ==
LOC: FER 13:01
PROC: 09C1XZZ Extirpation of Matter from Left External Ear, External Approach (ICD-10-PCS; principal; 2023-08-07)
DX: T16.2XXA Foreign body in left ear, initial encounter (principal)
CPT/HCPCS: 99282-25

== ENCOUNTER 2024-01-08 22:55 | Emergency (ER) | payer OTHER, MEDICARE ==
[2024-01-08 23:01] VITALS: BMI 22.9
[2024-01-08 23:24] VITALS: BP 123/69; PULSE 69; RESP 16; TEMP 98.7
== END 2024-01-08 23:25 | disposition home or self-care (01) ==
LOC: FER 22:55
PROC: 09C47ZZ Extirpation of Matter from Left External Auditory Canal, Via Natural or Artificial Opening (ICD-10-PCS; principal; 2024-01-08)
DX: T16.2XXA Foreign body in left ear, initial encounter (principal)
CPT/HCPCS: 99283-25

== ENCOUNTER 2024-01-29 18:55 | Emergency (ER) | payer OTHER, MEDICARE ==
[2024-01-29 19:13] VITALS: BP 148/98; PULSE 95; RESP 18; TEMP 98.1; BMI 22.9
[2024-01-29] MEDS ORDERED: ACETAMINOPHEN 325 MG TABLET (FP) ONE (20:00)
[2024-01-29] MEDS: ACETAMINOPHEN 325 MG TABLET (FP) PO ONE (20:01)
== END 2024-01-29 21:35 | disposition home or self-care (01) ==
LOC: FER 18:55
DX: S42.212A Unspecified displaced fracture of surgical neck of left humerus, initial encounter for closed fracture (principal); S30.0XXA Contusion of lower back and pelvis, initial encounter; W22.8XXA Striking against or struck by other objects, initial encounter
CPT/HCPCS: 70450-TC; 72100-TC-FY; 72125-TC; 73030-TC-LT-FY; 99284-25

== ENCOUNTER 2024-04-17 20:14 | Inpatient (IN) | payer OTHER, MEDICARE ==
[2024-04-17 23:07] LABS: HEMATOCRIT 49.5 % (35.4-49); HEMOGLOBIN 16.4 G/dL (11.7-16.9); MCHC 33.2 g/dl (32.0-35.9); MEAN CELL VOLUME 96.4 fl (80-96); MEAN PLT VOLUME 10.7 fl (7.5-11.1); PLATELET COUNT 155.2 10^3/uL (134-434); RBC 5.13 10^6/uL (4.00-5.60); RDW 13.5 % (11.9-15.9); WHITE BLOOD COUNT 8.5 10^3/uL (4.0-10.8)
[2024-04-17 23:15] LABS: PLATELET ESTIMATE ADEQUATE
[2024-04-17 23:24] LABS: ALBUMIN 4.5 g/dl (3.4-5.0); BILIRUBIN,TOTAL 0.4 mg/dl (0.2-1); CALCIUM 9.9 mg/dl (8.5-10.1); CREATININE 0.9 mg/dl (0.6-1.3); TOT PROT 6.8 g/dl (6.4-8.2)
[2024-04-18 00:10] VITALS: BMI 23.1
[2024-04-18] MEDS: ACETAMINOPHEN 325 MG TABLET (FP) PO PRN (00:28)
[2024-04-18] MEDS: TAMSULOSIN HCL 0.4 MG CAP PO SCH (07:34)
[2024-04-18 09:17] LABS: HEMATOCRIT 46.1 % (35.4-49); HEMOGLOBIN 14.7 G/dL (11.7-16.9); MCH 30.9 pg (25.7-33.7); MCHC 31.9 g/dl (32.0-35.9); MEAN PLT VOLUME 10.4 fl (7.5-11.1); PLATELET COUNT 135.1 10^3/uL (134-434); RBC 4.75 10^6/uL (4.00-5.60); RDW 13.1 % (11.9-15.9); WHITE BLOOD COUNT 5.5 10^3/uL (4.0-10.8)
[2024-04-18 09:37] LABS: CALCIUM 9.5 mg/dl (8.5-10.1); CREATININE 0.8 mg/dl (0.6-1.3); MAGNESIUM 2.2 mg/dL (1.8-2.4); POTASSIUM 4.1 mmol/L (3.5-5.1)
[2024-04-18] MEDS: levETIRAcetam 500 MG TABLET (FP) PO SCH (09:45)
[2024-04-18] MEDS: amLODIPine BESYLATE 10 MG TABLET (FP) PO SCH (09:46)
[2024-04-18] MEDS: ENOXAPARIN NA (PORCINE) 40 MG/0.4 ML DISP.SYRIN SQ SCH (09:46)
[2024-04-18] MEDS: DIVALPROEX SODIUM 500 MG TABLET E.C. PO SCH (09:58)
[2024-04-18] MEDS: DIVALPROEX SODIUM 250 MG TABLET E.C. PO SCH (21:01)
[2024-04-20 08:03] LABS: HEMATOCRIT 45.7 % (35.4-49); HEMOGLOBIN 14.6 G/dL (11.7-16.9); MCH 30.7 pg (25.7-33.7); MEAN CELL VOLUME 96.1 fl (80-96); PLATELET COUNT 159.4 10^3/uL (134-434); RBC 4.76 10^6/uL (4.00-5.60); RDW 13.7 % (11.9-15.9); WHITE BLOOD COUNT 5.1 10^3/uL (4.0-10.8)
[2024-04-20 08:16] LABS: CALCIUM 9.5 mg/dl (8.5-10.1); CREATININE 0.8 mg/dl (0.6-1.3); POTASSIUM 4.1 mmol/L (3.5-5.1)
[2024-04-20 10:02] LABS: CHOLESTEROL 205 mg/dL (50-200); HDL CHOLESTEROL 67 mg/dL (40-60); LDL CHOLESTEROL (ONLY DFH) 123 mg/dL (5-100)
[2024-04-20 11:45] LABS: N-TERMINAL BNP 70.8 pg/ml (5-450)
[2024-04-21 06:14] VITALS: RESP 18; TEMP 98.3
[2024-04-21 10:50] VITALS: BP 126/59; PULSE 68
== END 2024-04-21 11:44 | disposition home or self-care (01) | DRG 563 ==
LOC: FER 20:14 → FM/S 23:09 → UNDOADMOB 23:28 → FM/S 23:28 → INTOOBSV 04-18 18:27 → OBSVTOIN 04-18 18:27 → UNDOADMOB 04-18 18:27 → FM/S 04-18 18:27
PROVIDERS: ADMIT Nurse Practitioner Family
PROC: 2W39X1Z Immobilization of Left Upper Extremity using Splint (ICD-10-PCS; principal; 2024-04-18)
DX: S42.295A Other nondisplaced fracture of upper end of left humerus, initial encounter for closed fracture (principal); S92.351A Displaced fracture of fifth metatarsal bone, right foot, initial encounter for closed fracture; S93.401A Sprain of unspecified ligament of right ankle, initial encounter; I10 Essential (primary) hypertension; W18.30XA Fall on same level, unspecified, initial encounter; E78.5 Hyperlipidemia, unspecified; I35.0 Nonrheumatic aortic (valve) stenosis; I27.20 Pulmonary hypertension, unspecified; N40.0 Benign prostatic hyperplasia without lower urinary tract symptoms; F20.9 Schizophrenia, unspecified; R01.1 Cardiac murmur, unspecified; G40.909 Epilepsy, unspecified, not intractable, without status epilepticus; Y92.098 Other place in other non-institutional residence as the place of occurrence of the external cause; Y99.9 Unspecified external cause status; Z96.652 Presence of left artificial knee joint
CPT/HCPCS: 36415; 71045-TC-FY; 73030-TC-LT-FY; 73610-TC-RT-FY; 73630-TC-RT-FY; 80048; 80053; 80061; 81003; 83036; 83735; 83880; 84443; 85027; 87635; 93005; 93306-TC; 97116-GP; 97162-GP; 99285-25